=== PATIENT | male | born 1980 | race Caucasian/White ===

== ENCOUNTER 2019-10-24 06:36 | Emergency (ER) | payer OTHER ==
[~2019-10-24] VITALS: Ht 188 cm; Wt 88.5 kg
[2019-10-24 06:38] VITALS: BP 132/78
--- NOTE | 2019-10-24 06:42 | NUR ---
CALLED LAB FOR COVID SWAB
--- NOTE | 2019-10-24 07:04 | NUR ---
covid swab collected. sent to lab. lab aware.
== END 2019-10-24 07:10 | disposition home or self-care (01) ==
LOC: ER 06:42
DX: Z03.818 Encounter for observation for suspected exposure to other biological agents ruled out (principal)

== ENCOUNTER 2019-11-07 06:17 | Emergency (ER) | payer OTHER ==
[~2019-11-07] VITALS: Ht 188 cm; Wt 79.4 kg
[2019-11-07 06:21] VITALS: BP 132/78
--- NOTE | 2019-11-07 08:47 | NUR ---
COVID RESULTED, NEGATIVE. COPY PROVIDED TO PATIENT. Patient a/ox4, ambulatory, denies symptoms of covid. Patient discharged to home in stable condition. Written and verbal after care instructions given. Patient verbalizes understanding of instruction.
== END 2019-11-07 08:48 | disposition home or self-care (01) ==
LOC: ER 06:20
DX: Z03.818 Encounter for observation for suspected exposure to other biological agents ruled out (principal)
CPT/HCPCS: 87426; 99283; C9803